=== PATIENT | male | born 1970 | race Caucasian/White ===

== ENCOUNTER → 2020-05-05 | Outpatient (CLI) | payer OTHER ==
[~2020-05-05] MED LIST: ACETAMINOPHEN-1 EAC1 PO; FLEXERIL PO; GABAPENTIN 100100 MG PO; MEDROLDOSEPACK PO; NAPROSYN500 MG PO; NORVASC2.5 MG PO; OMEPRAZOLE20 M1 PO; POTASSIUM20 PO; TENORMIN50 MG PO; VALTREX1000 MG PO; VICODIN 5-5001 EACH PO; ZANTAC150 M2 PO
== END ==
LOC: M.ULTRA 15:00
PROVIDERS: ATTEND Family Medicine
DX: R22.2 Localized swelling, mass and lump, trunk (principal)

== ENCOUNTER 2021-05-20 00:11 | Emergency (ER) | payer OTHER ==
[~2021-05-20] VITALS: Ht 175.3 cm; Wt 99.8 kg
[2021-05-20] MEDS ORDERED: LIPITOR 20 MG T20 M1 PO (00:24)
[2021-05-20] MEDS ORDERED: KLOR-CON 10 ER10 MEQ PO (00:25)
[2021-05-20] MEDS ORDERED: OMEPRAZOLE 20 M20 M1 PO (00:25)
[2021-05-20] MEDS ORDERED: ALLOPURINOL 10100 M3 PO (00:26)
[2021-05-20] MEDS ORDERED: METHOCARBAMOL750 MG PO (00:26)
[2021-05-20 01:04] LABS: ABSOLUTE BASOPHILS 0.1 thou/uL (0.0-0.2); ABSOLUTE EOSINOPHILS 0.3 thou/uL (0.0-0.7); ABSOLUTE LYMPHOCYTES 2.3 thou/uL (0.8-5.3); ABSOLUTE MONOCYTES 0.7 thou/uL (0.0-1.2); BASOPHILS 1.3 %; EOSINOPHILS 2.7 %; HEMOGLOBIN 16.6 gm/dL (14.0-18.0); LYMPHOCYTES 22.3 %; MCH 29.7 pg (26.0-34.0); MCHC 34.5 g/dL (28.0-37.0); MONOCYTES 6.7 %; MPV 6.3 fl. (7.2-11.1); NUCLEATED RBCS 0 /100WBC; PLATELET COUNT* 243 thou/uL (150-400); RBC 5.59 mil/uL (4.50-6.00); RDW-CV 13.5 % (10.5-14.5); WBC 10.5 thou/uL (4.0-11.0)
[2021-05-20 01:15] LABS: CALCIUM 8.3 mg/dL (8.5-10.1); CREATININE 1.1 mg/dL (0.6-1.3)
[2021-05-20 01:19] LABS: POTASSIUM 2.9 mmol/L (3.5-5.1)
[2021-05-20 01:24] LABS: ALBUMIN 3.2 g/dL (3.4-5.0); TOTAL BILIRUBIN 0.4 mg/dL (<0.1-1.0); TOTAL PROTEIN 5.9 g/dL (6.4-8.2)
[2021-05-20 01:37] LABS: URINE BILIRUBIN NEGATIVE (Negative); URINE BLOOD TRACE (Negative); URINE CLARITY CLEAR; URINE COLOR YELLOW; URINE GLUCOSE-RANDOM NEGATIVE (Negative); URINE KETONES NEGATIVE (Negative); URINE LEUKOCYTES-REFLEX NEGATIVE (Negative); URINE NITRITE-REFLEX NEGATIVE (Negative); URINE PROTEIN NEGATIVE (Negative); URINE UROBILINOGEN 0.2 E.U./dl (0.2-1.0)
[2021-05-20] MEDS ORDERED: HYDROCODON-ACE1 EAC7 PO (03:41)
[2021-05-20] MEDS ORDERED: ZOFRAN ODT4 MG PO (03:41)
[2021-05-20 03:50] VITALS: BP 140/60
--- NOTE | 2021-05-20 09:41 | EKG ---
[place] [address] ELECTROCARDIOGRAM REPORT Name: HIRAM JULIO Room: [facility]#: [id number] Admission: 05/20/21 Attend Phys: Discharge: 05/20/21 Date of : 66 Date of Service: 05/20/21 0049 Report #: [id number] THIS REPORT FOR: //name// [facility] ED Test Date: 2021-05-20 Test Time: 00:49:25 Pat Name: HIRAM JULIO Department: Room: Gender: Digital Intern: : 1970 Requested By: Nadia Browne Order Number: [id number] MD: Vinnie Tomas Measurements Intervals [place] Rate: 76 P: 39 [place]: 158 QRS: 7 QRSD: 105 T: 35 QT: 428 QTc: 482 Interpretive Statements Sinus rhythm Borderline prolonged QT interval Baseline wander in lead(s) V1 No previous ECG available for comparison Electronically Signed On 05-20-2021 9:41:42 CDT by Vinnie Tomas [email or web address] <ELECTRONICALLY SIGNED> By: Vinnie Tomas MD, [facility] 05/20/21 0941 0049 0049 Vinnie Tomas MD, [facility] /EPI
== END 2021-05-20 03:53 | disposition home or self-care (01) ==
LOC: M.ERS 00:11
PROVIDERS: Personal Emergency Response Attendant
DX: K85.90 Acute pancreatitis without necrosis or infection, unspecified (principal); Z20.822 Contact with and (suspected) exposure to COVID-19; I10 Essential (primary) hypertension; K21.9 Gastro-esophageal reflux disease without esophagitis; E66.9 Obesity, unspecified; Z88.0 Allergy status to penicillin; Z79.899 Other long term (current) drug therapy